=== PATIENT | male | born 1955 | race Caucasian/White ===

== ENCOUNTER 2017-10-12 21:41 | Emergency (ER) | payer OTHER, SELFPAY ==
[2017-10-12 21:44] VITALS: BP 125/76; PULSE 83; RESP 16; TEMP 37.3; O2SAT 98; BMI 25.0
--- NOTE | 2017-10-12 22:15 | RAD_ITS ---
STUDY: X-RAY - LEFT TIBIA AND FIBULA REASON FOR EXAM: Male, 62 years old. Fall TECHNIQUE: 4 view(s) of the tibia and fibula were obtained. COMPARISON: None. FINDINGS: Normal visualized tibia. Normal visualized fibula. There is no demonstrated acute fracture. The soft tissue structures are unremarkable. RAD/Tibia & Fibula 2 Views IMPRESSION: Normal x-ray examination of the tibia and fibula. Electronically Signed: Eugenio Rangel DO at 23:12 EDT , Service support ,
--- NOTE | 2017-10-12 22:58 | ED.DCSUM_ITS ---
- ER Visit Summary Date of Service: 10/12/17 Chief Complaint: Left leg pain History of Present Illness: The patient is a [address] Rowe. Reports that approximately 6:00 this evening he was on the riding lawnmower when he was on pain treatment and the lawn more rolled and injured his left leg. He reports that he has a sharp pain with walking that is 7 out of 10 severity. A aching pain at rest it is 5 out of 10 severity. He denies any numbness distally. No other injuries. No other complaints. Physical Examination: Vitals: Stable. Afebrile. Neck: No vertebral tenderness. Full ROM without difficulty. Cleared by NEXUS criteria. Back: No vertebral tenderness. General: A&O x 3. NAD. Cardiovascular exam: Regular rate and rhythm, no murmur, rub or gallop. Respiratory exam: Chest nontender. No crepitus. Clear to auscultation bilaterally. No wheezes or stridor. Abdominal exam: Soft, nontender, nondistended, normal bowel sounds. No pain in RUQ or LUQ specifically. No peritoneal signs. Extremity: Soft tissue swelling and contusion to the medial side of his left leg. Is moderately tender to palpation. There are no signs of a compartment syndrome. He is neurovascular intact distally. No pain with range of motion. Test Results: X-ray is negative. Emergency Department Course and Treatment: Patient refused pain medications. Treatment Plan: Had a prolonged discussion with the patient about the signs and symptoms of compartment syndrome and he is instructed to return for these. Otherwise elevate and take it easy. Follow-up Dr. Rowe in 1 week if not improving. Disposition: To home in improved and stable condition. Impression: 1. Contusion left leg. This note was generated with [employer] dictation software. It may contain incorrect words, spelling, and punctuation that were not noted in review of the chart prior to signing ED Disposition - Plan for ED Patient: Disposition: Home or Assisted Living Chief Complaint: Lower Extremity Injury Instructions: ED Contusion Lower Ext Referrals: Jerson Rowe MD [Primary Care Provider] - 1 Week if not improving
--- NOTE | 2017-10-12 23:11 | ED.RN ---
DISCHARGE INSTRUCTIONS GIVEN TO AND REVIEWED WITH PATIENT, PATIENT DENIES QUESTIONS OR CONCERNS AND VOICES UNDERSTANDING OF DISCHARGE INSTRUCTIONS. PT AMBULATES OUT OF ROOM WITHOUT DIFFICULTY.
== END 2017-10-12 23:12 | disposition home or self-care (01) ==
PROVIDERS: Emergency Provider Emergency Medicine; Family Provider Family Medicine; PCP Family Medicine
DX: S80.12XA Contusion of left lower leg, initial encounter (principal); X58.XXXA Exposure to other specified factors, initial encounter; Y93.H2 Activity, gardening and landscaping; Y92.9 Unspecified place or not applicable; Y99.9 Unspecified external cause status
CPT/HCPCS: 73590; 99282